=== PATIENT | female | born 1935 | race Caucasian/White ===

== ENCOUNTER 2024-01-29 13:17 | Outpatient (CLI) | payer MEDICARE, SELFPAY ==
--- NOTE | 2024-01-29 13:45 | CA_ITS ---
APPROVED REPORT EXAM: Comprehensive 2D, Doppler, and color-flow Echocardiogram Tank Truck Milk Receiver: Sheila Levy RVT Ht: 5 ft 4 in Wt: 137lbs BSA: 1.67 BP: 149/69 mmHg Indications: SOA,TACHYCARDIA,HLD,EX SMOKER 2D Dimensions IVSd 1.25 cm F: 0.6-1.0 LVEF (Visual) 61.30 % PWd 0.82 cm F: 0.6 - 1.0 LA Volume 33.00 mL LVDd 3.23 cm F: 3.9 - 5.3 LA Volume Index 19.76 mL/m2 (M/F) 16-34 LVDs 2.20 cm F: 2.2 - 3.5 M-Mode Dimensions LA Diam 2.98 cm (1.9-4.0) TAPSE 1.88 (<1.7) LV Diastology E Decel Time 143 (160-240 msec) E/A Ratio 0.5 Aortic Valve LIBBY Index 1.64 cm2/m2 AoV Peak Meet. 125.0 (50-130 cm/s) AI PHT 488.00 ms AO Peak GR. 6.30 mmHg AO Mean GR. 3.50 (<5 mmHg) AO VTI 20.9 (18-25 cm) LIBBY (VTI) 2.81 (2.5-4.5 cm2) Mitral Valve MV E Max Meet. 51.0 (40-130 cm/s) MV A Velocity 109.0 (40-130 cm/s) E/A Ratio 0.47 MV PHT 42.0 ms Pulmonary Valve PV Peak Velocity 55.0 (50-150 cm/s) Tricuspid Valve TR P. Velocity 272.00 cm/s RAP Estimate 10.00 mmHg RVSP 39.70 mmHg Left Ventricle The left ventricle is normal size. The left ventricular systolic function is normal. The left ventricular ejection fraction is within the normal range. There is increased LV wall thickness. There is normal LV segmental wall motion. Transmitral Doppler flow pattern suggests impaired LV relaxation. LVEF is 55%. Right Ventricle Right ventricle is mildly dilated. The right ventricular systolic function is normal. Atria The left atrium size is normal. Right atrium is mildly dilated. There is no Doppler evidence of interatrial shunt. Aortic Valve The aortic valve is mildly thickened. There is no aortic valvular stenosis. Mild aortic regurgitation. Mitral Valve The mitral valve leaflets are mildly thickened. No evidence of mitral valve stenosis. Trace mitral regurgitation. Tricuspid Valve The tricuspid valve leaflets are thin and pliable. Mild tricuspid regurgitation. RVSP is 25-30 mmHg. Pulmonic Valve The pulmonary valve is normal in structure. Trace pulmonic regurgitation. Great Vessels The aortic root is normal in size. The ascending aorta is not well-visualized. IVC is normal in size and collapses >50% with inspiration. Pericardium There is no pericardial effusion. Conclusion Normal biventricular systolic function. Mild RV dilation. Mild RA dilation. Mild AI, mild TR. Electronically signed by : Unique Krishnamurthy MD 02/04/2024 11:42:18
== END 2024-01-29 23:59 | disposition home or self-care (01) ==
LOC: RT 13:19
PROVIDERS: PCP Family Medicine; Visit Provider Physician Assistant
DX: I51.7 Cardiomegaly (principal); R06.02 Shortness of breath; E78.2 Mixed hyperlipidemia
CPT/HCPCS: 93306

== ENCOUNTER 2025-01-21 12:26 | Outpatient (CLI) | payer MEDICARE, SELFPAY ==
--- OUTSIDE RECORDS SUMMARY | 2023-07-09 11:31 | XMS_ITS | Continuity of Care Document ---
Author Organization [facility] Address [address] [place] [address] Phone Care Team Providers Care Solar Energy Engineer Name Role Phone Obed Crespo MD Unavailable Unavailable Allergies, Adverse Reactions, Alerts Substance Reaction Status Criticality No Known Allergies Active No Inform ation Medications Medication Instructions Dosage Effective Dates (start - stop) Status Comments Celebrex 200 mg capsule take 1 capsule by oral route 2 times every day as needed 200 MG - Active diclofenac sodium 75 mg tablet,delayed release Take 1 po BID pc - Active rosuvastatin 10 mg tablet take 1 tablet by oral route every day 10 MG - Active Procedures Procedure Date Office/outpatient visit,est, Low 2023 Depomedrol 40mg Drain/inject major joint or bursa X-ray exam of knee, 3 views Office/outpatient visit,est, high Depomedrol 40mg Drain/inject major joint or bursa X Ray Hip W/ Pelvis If Perf 2-3 Views Ja X-ray exam lwr spine, min 4 views Office/outpatient visit,new, mod 2020 Advance Directives Directive Yes / No Effective Date File Name No Information Encounters Encounter Description Practice Location Reason(s) For Visit Diagnoses Date Provider Providers Copied on Encounter [facility], [address], [place], [place], [id number], [place] tel:[phone] [facility] 400 No Information 4 Zak Clay. [address], [place], [place], [id number] , [place]. tel:[phone] Referring Provider: Obed Segura, [address], [place], [address] . tel:[phone] Office/outpa tient visit,[facility], [address], [place], [place], [id number], [place] tel:[phone] [facility] 400 knee (chief complaint) Primary osteoarthritis of right knee 4 Zak Clay. [address], [address], [place], [place], [id number] , [place]. tel:[phone] Referring Provider: Obed Segura, [address], [place], [address] . tel:[phone] Office/outpa tient visit,[facility], [address], [place], [place], [id number], [place] tel:[phone] [facility] - Walk-in right knee pain (chief complaint) Acute pain of right kneePrimary osteoarthritis of right knee 3 Meliton Leija. [address], [address], [place], [place], [id number] , [place]. tel:[phone] Referring Provider: Heladio Harden, [address], [place], [address] . tel:[phone] Office/outpa tient visit,[facility], [address], [place], [place], [id number], [place] tel:[phone] [facility] [address] lumbar spine (chief complaint) Lumbar painDisc degeneration, lumbarTrochanter ic bursitis, left hip 1 Rebeca Allen. [address], [address], [place], [place], [address] , [place]. tel:[phone] Referring Provider: Alejandro Lubin, [address], [place], [address] . tel:[phone] [facility], [address], [place], [place], [id number], [place] tel:[phone] [place] [address] No Information 1 Rebeca Allen. [address], [address], [place], [place], [address] , [place]. tel: [phone] Family History Family Member Type Diagnosis Age At Onset Mother Problem (finding) Father Problem (finding) Payers Payer name Insurance type Covered alliance party ID Authoriza tion(s) MEDICARE [id number] AARP SUPPLEMENT CI [id number] Social History Type Description Quantity Date Captured Comments Sex Female Smoking Status No Information Chief Complaint And Reason For Visit No Information Reason For Referral Reason For Referral No Information Plan Of Treatment Date Type Action Status Referral Ordered: X-ray exam of knee, 3 views RT ordered Referral Ordered: X Ray Hip W/ Pelvis If Perf 2-3 Views LT ordered Referral Ordered: X-ray exam of lower spine, complete ordered History Of Present Illness Encounter Date Complaint History Of Prese nt Illness knee Ryanne Weir is a 88 year old female. She presents for right knee pain that began the beginning of 04/2023. Patient states she was leaning over a chair when she came back up she turned twisting her knee. Patient saw Heladio GUZMAN on 04/21/23 where he proceeded with a CSI for OA and reports 100% improvement. She denies any pain today. The problem is improving. The pain is described as aching. The symptoms are aggravated by ascending stairs. right knee pain Ms Weir is a 87 y ear old female who complains of right knee pain. She presents with pain on the right side. Patient presents to the office for right knee pain that began a week ago. Patient states she was folding a chair when she came back up she turned twisting her knee. She states that the symptoms have been acute non-traumatic and began 1 week ago. Ryanne states that the symptoms began as the result of twisting. The symptoms occur intermittently. Currently the patient states that the symptoms are moderate. The pain is described as aching. The symptoms occur with activity. She also reports additional pain in the medial aspect on the right side. She rates her current pain as 6/10. The pain does not radiate. The symptoms are aggravated by standing and walking. Ryanne states that the symptoms are relieved by rest and OTC medicines. In addition to right knee pain the patient is also experiencing decreased mobility. lumbar spine Ryanne Weir is a 85 year old female. She presents with pain. Patient states for 5 nights she has been in a recliner. Patient states went from her lower back into her left hip. She states that the symptoms have been chronic non-traumatic. The symptoms occur constantly. The problem is fluctuating. The patient is experiencing pain in the following location: lower back. She rates her current pain as 4/10. The pain radiates from the lower back then to the lower extremities. She denies having any associated symptoms. Functional Status Date Functional Assessmen t No Information Instructions Date Instruction Additional Infor ruth Have discussed hermelindo gilbert a home exercise program which the patient has been instructed on. At this point the patient will schedule a follow-up appointment on an as-needed basis if symptoms were to recur or persist. Related to Primary osteoarthritis of right knee 87 year old female w ho complains of right knee pain that began a week ago. Patient states she was leaning over a chair when she came back up she turned twisting her knee. Since that time she has been experiencing pain and swelling in the right knee. She is having extreme difficulty with walking. Examination today of the right knee demonstrates a marked amount of patellofemoral crepitance. There is no instability appreciated. Amisha's is negative. Patient has pain referenced to the posterior medial joint line. X-rays taken in the office today demonstrate degenerative changes bilaterally to include patellofemoral arthrosis and degeneration of the medial compartment bilaterally. Recommend after Betadine preparation to inject the right knee with 2 cc of Marcaine and 2 cc of Depo-Medrol with good postinjection response. Patient ambulated with much less pain. Recommend Celebrex 200 mg p.o. daily #14. Patient will follow-up with Dr. Crespo in 4 to 6 weeks. Related to Primary osteoarthritis of right knee She has had recurren t low back pain in the past and has had treatment including epidural steroid injections. Findings today are those of primary trochanteric bursitis left with secondary symptoms of low back discomfort related to disc degeneration without a definite radicular component. X-rays demonstrate degenerative change of the lumbar spine and mild changes of the hip. We discussed treatment for diagnostic and therapeutic reasons. Left hip will be injected We have discussed treatment options at length including injections, medications and surgical intervention. The patient has substantial pain and inflammation, I believe it is medically necessary to inject the hip directly with corticosteroids and anesthetics in order to expedite the recovery. The joint is so inflamed and aggravated that I do not believe oral medications, topical medication or external treatment with be effective alone. Using a sterile technique, I have injected the patient trochanteric bursa with 2cc Bupivacaine mixed with 4cc Depo Medrol 40 mg. Using a sterile technique. She is placed on prednisone taper followed by use of diclofenac for 2 to 4 weeks. She is advised on ice rest and home exercise program including core strengthening and IT band stretching. She presently takes a statin drug and has no gastric symptomatology. We discussed possible side effects of medication. Related to Trochanteric bursitis, left hip Assessments Type Assessment Date No Information Patient Care Teams Name Effective Dates (start - stop) Status Members No Information
--- OUTSIDE RECORDS SUMMARY | 2025-01-21 12:29 | XMS_ITS | Encounter Summary ---
Author Organization [facility] ([place], [place], [place], [place]) Address [address] [place] [address] Care Team Providers Care Airport Clerk Name Role Phone America Heredia MD Primary Care Provider [phone] Encounter Details Date Type Department Care Team (Late st Contact Info) Description 10/02/2021 Transcribed Document [facility] [address] [place] [address] ProviderPaulina MD [address] [place] [address] Social History Tobacco Use Types Packs/Day Years Used Date Smoking Tobacco: Never Assessed Family and Community Support Answer Alejo e Recorded Help with Day to Day Activities Not on file 06/27/2023 Feeling Lonely or Isolated Not on file 06/27 Educational Attainment Answer Date Burak rded Speak language other than [place] at home Not on file 06/27/2023 Want help with school or training Not on file 06/27/2023 Substance Use Answer Date Recorded Used prescription meds for non-medical reasons N ot on file 06/27/2023 Used illegal drugs past 12 months Not on file 06/27/2023 Comments Unknown Sex and Gender Information Value Date Recorded Sex Assigned at Not on file Legal Sex Female 3:45 PM CDT Gender Identity Not on file Sexual Orientation Not on file documented as of this encounter Miscellaneous Notes * Cerner Conversion Note - Historical ProviderMD - 10/02/2021 12:39 PM CDT Patient: RYANNE MONTANA Age: 86 years Sex: Female : 1935 Associated Diagnoses: Chest pain Author: ADA LA MD-EMR Basic Information Additional information: Chief Complaint from Nursing Triage Note : Chief Complaint 10/02/2021 12:12 EDT Chief Complaint 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 substernal squeezing on left side. 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 . History of Present Illness Patient is an 86-year-old female with a history of COPD presenting with chest pain and shortness of breath. Patient was at the infusion center and she states she started to feel a squeezing sensation on the left side of her chest. She states I think everybody just overreacted . I think wearing the mask made me feel poorly as when EMS put oxygen on me I felt fine . Patient denies any chest pain at this time. Patient states she does not want to be evaluated as her sick and she would like to leave immediately. Allergies and nursing notes reviewed. Review of Systems Constitutional symptoms: No fever, no chills. Skin symptoms: No jaundice, ENMT symptoms: No sore throat, Respiratory symptoms: No shortness of breath, Cardiovascular symptoms: Chest pain. Gastrointestinal symptoms: No abdominal pain, no nausea, no vomiting. Musculoskeletal symptoms: No back pain, Neurologic symptoms: No headache, Endocrine symptoms: No polyuria, Health Status Allergies: Allergic Reactions (Selected) No Known Medication Allergies. Past Medical/ Family/ Social History Surgical history: No active procedure history items have been selected or recorded.. Family history: No family history items have been selected or recorded.. Social history: Social & Psychosocial Habits No Data Available . Problem list: No qualifying data available . Physical Examination Vital Signs Vital Signs/Vital Measures 10/02/2021 12:12 EDT Blood Pressure Location Arm, left upper Blood Pressure Source Non-Invasive BP Device Systolic Blood Pressure 123 mmHg Diastolic Blood Pressure 66 mmHg Temperature Source Oral Temperature Mode Fahrenheit Temperature, Fahrenheit 98.8 Deg F Clinical Temperature, C 37.1 Deg C Peripheral Pulse Rate 88 bpm Respiratory Rate 18 Breaths/Min Oxygen Saturation 98 % Oxygen Therapy Mode Room air . Measurements 10/02/2021 12:12 EDT Height Source Stated Height Entry Format [place] Height/Length, [place] (ft) 5 ft Height/Length [place] 5 Inch CLINICALHEIGHT 165.1 cm Type of Weight Measurement. Dixie Weight, est lb 145 lb Estimated Clinical Dosing Weight 65.91 kg [place] Body Weight 56.59 kg Weight Source, ED Estimated . Oxygen Saturation 10/02/2021 12:12 EDT Oxygen Saturation 98 % . General: Alert, no acute distress. Skin: Warm, no rash, normal for ethnicity. Head: Normocephalic. Neck: Supple. Eye: Extraocular movements are intact, normal conjunctiva, Sclera. Ears, nose, mouth and throat: Oral mucosa moist. Cardiovascular: Regular rate and rhythm, No murmur, Normal peripheral perfusion, No edema. Respiratory: Respirations are non-labored, breath sounds are equal, Breath sounds: Bilateral, diminished. Chest wall: No tenderness. Back: Nontender. Gastrointestinal: Soft, Nontender, Non distended, Normal bowel sounds. Neurological: Alert and oriented to person, place, time, and situation, No focal neurological deficit observed. Lymphatics: No lymphadenopathy. Psychiatric: Cooperative. Medical Decision Making Differential Diagnosis: Unstable angina, angina, anxiety, pulmonary embolism, atypical chest pain, aortic dissection, pneumonia, gastroesophageal reflux disease, costochondritis. Documents reviewed: Emergency department nurses' notes. Impression and Plan Diagnosis Chest pain - Reason For Visit, Emergency medicine, Medical EKG is normal sinus. I told the patient I do not recommend her leaving as we need to evaluate her for her chest pain and symptoms. Patient understands the risk of morbidity mortality and would like to leave AGAINST MEDICAL ADVICE. documented in this encounter Plan of Treatment Upcoming Encounters Date Type Department Care Team (Late st Contact Info) Description 03/07/2025 11:45 AM EDT Appointment [address] [place] [address] documented as of this encounter Visit Diagnoses Not on filedocumented in this encounter Care Teams Airport Clerk Relationship Specialty Start Date End Date America Heredia MD [address] [id number] PCP - General Family Medicine 02/27/23 documented as of this encounter
--- OUTSIDE RECORDS SUMMARY | 2025-01-21 12:29 | XMS_ITS | Encounter Summary ---
Author Organization [facility] ([place], [place], [place], [place]) Address [address] [place] [address] Care Team Providers Care Industrial Gas Fitter Helper Name Role Phone America Heredia MD Primary Care Provider [phone] Reason for Referral * Mammography (Routine) - Authorized Specialty Diagnoses / Procedures Referred By Contac t Referred To Contact Radiology Diagnoses Visit for screening mammogram Procedures MM digital mammo screen with bryan bilateral America Heredia MD [address] [address] Phone: tel: fax: [facility] [address] [facility] [address] [place] [address] Phone: tel: fax: Referral ID Status Reason Start Date Expiration Date V isits Requested Visits Authorized [id number] Authorized 03/07/2025 03/07/2026 1 1 Encounter Details Date Type Department Care Team (Late st Contact Info) Description 03/02/2024 Outside Orders [facility] [address] [facility] [address] [place] [address] America Heredia MD [address] [address] Visit for screening mammogram (Primary Dx) Social History Tobacco Use Types Packs/Day Years Used Date Smoking Tobacco: Never Assessed Family and Community Support Answer Alejo e Recorded Help with Day to Day Activities Not on file 06/27/2023 Feeling Lonely or Isolated Not on file 06/27 Educational Attainment Answer Date Burak rded Speak language other than Romanian at home Not on file 06/27/2023 Want [...] on file documented as of this encounter Plan of Treatment Upcoming Encounters Date Type Department Care Team (Late st Contact Info) Description 03/07/2025 11:45 AM EDT Appointment [address] [address] Scheduled Orders Name Type Priority Associated Diagnoses Orde r Schedule MM digital mammo screen with bryan bilateral Imaging Routine Visit for screening mammogram Expected: 03/07/2025, Expires: 03/07/2026 documented as of this encounter Visit Diagnoses Diagnosis Visit for screening mammogram- Primary documented in this encounter Care Teams Industrial Gas Fitter Helper Relationship Specialty Start Date End Date America Heredia MD [address] [place] [phone] PCP - General Family Medicine 02/27/23 documented as of this encounter
--- OUTSIDE RECORDS SUMMARY | 2025-01-21 12:29 | XMS_ITS | Patient Health Record ---
Author Organization [facility] Address [address] [facility] [address] [place] [address] Care Team Providers Care Distribution Tech Name Role Phone Michelle Addison Unavailable [phone] Allergies No Known Allergies Reason For Referral No Information Medications Medication SIG (Take, Route, Frequency, Duration) Notes Start Date End Date Status traMADol HCl 50 MG Tablet TAKE 1 TABLET BY MOUTH EVERY 6 HOURS NEEDED FOR PAIN Oral; Duration: 2 Active Dulera 100-5 MCG/ACT Aerosol Inhalation; Duration: 90 Act baldomero Montelukast Sodium 10 MG Tablet Oral; Duration: 90 Active Rosuvastatin Calcium 10 MG Tablet Oral; Duration: 90 Active Social History Social History Drugs/Alcohol: Social Info Question Answer Notes Drugs Have you used drugs other than those for medical reasons in the past 12 months? No Alcohol Screen Did you have a drink containing alcohol in the past year? No Points 0 Interpretation Negative Problems Problem Type SNOMED Code ICD Code Onset Dates Problem Status W/U Status Risk Notes Problem Catheterization of urinary bladder (470644716) Guido catheter in place (Z96.0) 11/09/19 20 Active confirmed Vaginal pessary in situ Problem Midline cystocele (N81.11) Active confirmed Plan Of Treatment No Information Insurance Providers Payer Name Payer Address Payer Phone Subscriber Number Group Number Insured Name Patient Relationship to Insured Coverage Start Date Coverage End Date [place] [address] [place] [address] [id number] Ryanne Weir Self - patient is the insured 2 AARP [address] [place], [place] [phone] [id number] Ryanne Weir Self - patient is the insured 01/01/202 2 Medical (General) History Medical History History ICD Code COOPER III 1983 elevated cholesterol cystocele Surgical History Surgery Date(Month/Year) hyst BS&O for COOPER III Cervical conization D&C left breast biopsy Hospitalization History Reason Date(Month/Year) childbirth [facility]
--- OUTSIDE RECORDS SUMMARY | 2025-01-21 12:29 | XMS_ITS | Encounter Summary ---
Author Organization [employer] ([place], [place], [place], [place]) Address [address] [place] [address] Care Team Providers Care Dye Lab Technician Name Role Phone America Heredia MD Primary Care Provider [phone] Encounter Details Date Type Department Care Team (Late st Contact Info) Description 10/02/2021 Transcribed Document [facility] [place] Family Medicine [address] [place] [address] ProviderPaulina MD [address] [place] [address] Social History Tobacco Use Types Packs/Day Years Used Date Smoking Tobacco: Never Assessed Family and Community Support Answer Alejo e Recorded Help with Day to Day Activities Not on file 06/27/2023 Feeling Lonely or Isolated Not on file 06/27 Educational Attainment Answer Date Burak rded Speak language other than Chinese at home Not on file 06/27/2023 Want [...] Miscellaneous Notes * Cerner Conversion Note - Paulina ProviderMD - 10/02/2021 11:52 AM CDT ED Triage Entered On: 10/02/2021 12:21 EDT Performed On: 10/02/2021 12:12 EDT by Carrie Washington, RN-PATIENT CARE BEDSIDE NON-EXEMPT ED Triage Across the Room Chief Complaint : 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 substernal squeezing on left side. 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 nsr on ekg. Triage Date/Time : 10/02/2021 12:12 EDT Carrie Washington RN-PATIENT CARE [facility] NON-EXEMPT - 10/02/2021 12:12 EDT DCP GENERIC CODE Tracking Acuity : 3 - Urgent Tracking Group : [facility] ED [facility] Carrie Washington RN-PATIENT CARE BEDSIDE NON-EXEMPT - 10/02/2021 12:12 EDT Mode of Arrival : Stretcher Transported to ED by : Ambulance/ALS EMS Service : [facility] To Room Via : Stretcher Accompanied By : Unaccompanied ED Vital Signs : Document Height & Weight : Document ED Allergies : Document ED Reason for Visit : Document ED Triage Treatments : Document Tetanus Immunization : Greater than 5 years Student Development Coordinator Needed : No Carrie Washington RN-PATIENT CARE [facility] NON-EXEMPT - 10/02/2021 12:12 EDT Infectious Disease History Does patient have symptoms of COVID-19? : No Tested for COVID19 in the past 14 days : No, Patient stated Does the Patient state known exposure to a COVID-19 positive case in the last 14 days? : No Patient Vaccinated for COVID-19 : Fully vaccinated Carrie Washington RN-PATIENT CARE [facility] NON-EXEMPT - 10/02/2021 12:12 EDT Infectious Disease Risk Screening Grid Cough < 2 wks of unknown origin : NO Cough > 2 weeks : NO Blood in Sputum : NO Fever or self-reported Fever : NO Rash of unknown origin : NO Headache : NO Stiff neck : NO Night Sweats : NO Unexplained Weight Loss : NO Diarrhea (3 episode per day) : NO Carrie Washington RN-PATIENT CARE [facility] NON-EXEMPT - 10/02/2021 12:12 EDT Physical contact outside [place] in the last 30 days : No Hospitalized in Foreign Country : No Infectious Disease History : None INF Disease TB Screening Calc : 0 INF Disease Recent Travel Calc : 0 Carrie Washington RN-PATIENT CARE [facility] NON-EXEMPT - 10/02/2021 12:12 EDT Vital Signs ED Temperature Source : Oral Temperature Mode : Fahrenheit Temperature, Fahrenheit : 98.8 Deg F ED Pain : No Clinical Temperature, C : 37.1 Deg C Oxygen Therapy Mode : Room air Peripheral Pulse Rate : 88 bpm Respiratory Rate : 18 Breaths/Min Blood Pressure Location : Arm, left upper Blood Pressure Source : Non-Invasive BP Device Systolic Blood Pressure : 123 mmHg Diastolic Blood Pressure : 66 mmHg Oxygen Saturation : 98 % Carrie Washington RN-PATIENT CARE BEDSIDE NON-EXEMPT - 10/02/2021 12:12 EDT Allergy (As Of: 10/02/2021 12:21:46 EDT) Allergies (Active) No Known Medication Allergies Estimated Onset Date: Unspecified ; Created By: Carrie Washington RN-PATIENT CARE BEDSIDE NON-EXEMPT; Reaction Status: Active ; Category: Drug ; Substance: No Known Medication Allergies ; Type: Allergy ; Updated By: Carrie Washington RN-PATIENT CARE BEDSIDE NON-EXEMPT; Reviewed Date: 10/02/2021 12:19 EDT Diagnosis Control ED (As Of: 10/02/2021 12:21:46 EDT) Diagnoses(Active) Chest pain Date: 10/02/2021 ; Diagnosis Type: Reason For Visit ; Confirmation: Complaint of ; Clinical Dx: Chest pain ; Classification: Medical ; Clinical Service: Non-Specified ; Code: PNED ; Probability: 0 ; Diagnosis Code: [id number] ED Height and Weight Height Source : Stated Height Entry Format : [place] Height, Feet : 5 ft(Converted to: 152 cm, 60 Inch) Height, Inches : 5 Inch(Converted to: 0 ft 5 Inch, 12.70 cm) Clinical Height : 165.1 cm Weight Source, ED : Estimated [place] Body Weight (IBW) : 56.59 kg Carrie Washington RN-PATIENT CARE BEDSIDE NON-EXEMPT - 10/02/2021 12:12 EDT Estimated Weight Type of Weight Measurement Est : [place] Weight, est lb : 145 lb(Converted to: 66 kg) Estimated Clinical Dosing Weight : 65.91 kg Carrie Washington RN-PATIENT CARE BEDSIDE NON-EXEMPT - 10/02/2021 12:12 EDT Triage Initial Exam and Interventions, ED Level of Consciousness : Alert Affect/Behavior : Appropriate, Calm, Cooperative Orientation : Oriented x 4 Skin Temperature : Warm Skin Description : Normal for ethnicity Carrie Washington RN-PATIENT CARE BEDSIDE NON-EXEMPT - 10/02/2021 12:12 EDT ED Influenza/Pneumoccocal Vaccine Influenza Immunization, Current Season : Yes Influenza Immunization Date : 03/09/2021 EDT Pneumonia Immunization Received : No Pneumonia Immunization Date : 10/02/2021 EDT Previous Vaccines from Immunization Schedule : No qualifying data available. Carrie Washington RN-PATIENT CARE BEDSIDE NON-EXEMPT - 10/02/2021 12:12 EDT Electronically signed by [facility] Conversion Justice Professor Cerner at 09/22/2022 9:27 AM CDT documented in this encounter Plan of Treatment Upcoming Encounters Date Type Department Care Team (Late st Contact Info) Description 03/07/2025 11:45 AM EDT Appointment [address] [place] [address] documented as of this encounter Visit Diagnoses Not on filedocumented in this encounter Care Teams Dye Lab Technician Relationship Specialty Start Date End Date America Heredia MD [address] [place] [phone] PCP - General Family Medicine 02/27/23 documented as of this encounter
--- OUTSIDE RECORDS SUMMARY | 2025-01-21 12:29 | XMS_ITS | Encounter Summary ---
Author Organization [email or web address] ([place], [place], [place], [place]) Address [address] [place] [address] Care Team Providers Care Motorcycle Mechanic Apprentice Name Role Phone America Heredia MD Primary Care Provider [phone] Encounter Details Date Type Department Care Team (Late st Contact Info) Description 10/02/2021 Transcribed Document [facility] [place] [address] [place] [address] ProviderPaulina MD [address] [place] [address] Social History Tobacco Use Types Packs/Day Years Used Date Smoking Tobacco: Never Assessed Family and Community Support Answer Alejo e Recorded Help with Day to Day Activities Not on file 06/27/2023 Feeling Lonely or Isolated Not on file 06/27 Educational Attainment Answer Date Burak rded Speak language other than Korean at home Not on file 06/27/2023 Want [...] Paulina ProviderMD - 10/02/2021 11:52 AM CDT Broset Violence Assessment Entered On: 10/02/2021 12:23 EDT Performed On: 10/02/2021 12:21 EDT by Carrie Washington, RN-PATIENT CARE BEDSIDE NON-EXEMPT Broset Violence Assessment Broset Violence Checklist of Symptoms : None Broset Violence Symptoms Subtotal : 0 Broset Violence Symptoms Indicator : Low risk (0) Carrie Washington RN-PATIENT CARE BEDSIDE NON-EXEMPT - 10/02/2021 12:21 EDT documented in this encounter Plan of Treatment Upcoming Encounters Date Type Department Care Team (Late st Contact Info) Description 03/07/2025 11:45 AM EDT Appointment [address] [place] [phone] documented as of this encounter Visit Diagnoses Not on filedocumented in this encounter Care Teams Motorcycle Mechanic Apprentice Relationship Specialty Start Date End Date America Heredia MD [address] [place] [phone] PCP - General Family Medicine 02/27/23 documented as of this encounter
--- OUTSIDE RECORDS SUMMARY | 2025-01-21 12:29 | XMS_ITS | Clinical Summary ---
Author Organization [employer] ([place], [place], [place], [place]) Address [address] [place] [address] Care Team Providers Care Exec. Creative Director Name Role Phone America Heredia MD Primary Care Provider [phone] Family History Medical History Relation Name Comments Breast cancer Mother age 85 Breast cancer Other Aunt Relation Name Status Comments Mother age 85 Other Aunt Social History Tobacco Use Types Packs/Day Years Used Date Smoking Tobacco: Never Assessed Family and Community Support Answer Alejo e Recorded Help with Day to Day Activities Not on file 06/27/2023 Feeling Lonely or Isolated Not on file 06/27 Educational Attainment Answer Date Burak rded Speak language other than Bulgarian at home Not on file 06/27/2023 Want [...] on file Sexual Orientation Not on file Plan of Treatment Upcoming Encounters Date Type Department Care Team (Late st Contact Info) Description 03/07/2025 11:45 AM EDT Appointment [address] [place] [phone] Health Maintenance Due Date Last Done Comments Depression Screening (12+) 1947 Tobacco Cessation Counseling and Screening (12+) 1947 Medicare Initial AWV [id number] 04/10/2003 Respiratory Syncytial Virus (RSV) Adult or (1 - 1-dose 75+ series) 2012 COVID-19 VACCINE (8 - 4-2 5 season) 2024 03/04/2022, 10/30/2021, 03/07/2021, Additional history exists Falls Risk Screening 06/09/2024 Influenza Vaccine (#1) 2025 3, 03/04/2022, 02/13/2021, Additional history exists DTAP/TDAP/TD VACCINES (2 - T d or Tdap) 03/18/2026 03/18/2016 Pneumococcal 50+ years Completed 7, 03/22/2015, 03/14/2009 Shingles Vaccine (Zoster) Completed 2019, 12/24/2019, 01/18/2008 Insurance MEDICARE [place] [address] [address] Care Teams Exec. Creative Director Relationship Specialty Start Date End Date America Heredia MD [address] [phone] PCP - General Family Medicine 02/27/23
--- OUTSIDE RECORDS SUMMARY | 2025-01-21 12:29 | XMS_ITS | Patient Health Record ---
Author Organization [employer] Address [address] [facility] [address] [place] [address] Care Team Providers Care Button Sewing Machine Operator Name Role Phone ABNER AMAYA Unavailable [phone] Allergies No Known Allergies Reason For Referral No Information Medications Medication SIG (Take, Route, Frequency, Duration) Notes Start Date End Date Status Probiotic Active Stool Softener 100 MG 1 capsule as neede d Orally Once a day Active Vitamin D 50 MCG (2000 UT) 1 tablet Oral ly Once a day Active Dulera 100-5 MCG/ACT 2 puffs Inhalation once a day Active Albuterol Sulfate HFA 108 (90 Base) MCG/ACT 2 puffs as needed Inhalation every 6 hrs as needed Active Montelukast Sodium 10 MG 1 tablet Orally Once a day Active Crestor 10 MG 1 tablet Orally Once a day Active Biotin 5000 Active Antihistamine Active Multi-Vitamin Active Glucosamine Active Social History Tobacco Use: Social History Observation Description Date Details (start date - stop date) Former Smoker NA - NA Tobacco Use/Smoking Question Answer Notes Are you a former smoker How long has it been since you last smoked? 5-10 years Alcohol Screen (Audit-C) Question Answer Notes Did you have a drink containing alcohol in the p ast year? No Points 0 Interpretation Negative Problems Problem Type SNOMED Code ICD Code Onset Dates Problem Status W/U Status Risk Notes Problem COPD - Chronic obstructive pulmonary disease (80018380) Chronic obstructive pulmonary disease, unspecified COPD type (J44.9) Active confirmed No hospitaliz ations. She is on a steroid and LBA. 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) Active confirmed 04/28/24 this gets worse when she plays golf Problem Allergic rhinitis (54399805) Allergic rhinitis, unspecified seasonality, unspecified trigger (J30.9) Active confirmed Problem Hearing loss (57284154) Bilateral hearing loss, unspecified hearing loss type (H91.93) Active confirmed she has hearing aids Problem 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 (7806104950778427 4) 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) Active confirmed this is not a current issue for her she had steroid shot which has helped Vital Signs Heart Rate 79 /min 04/28/2024 Temperature 97.8 degrees Fahrenheit 04/28/2024 Respiratory Rate 12 /min 04/28/2024 Height-cm 162.56 cm 04/28/2024 Oximetry 97 % 04/28/2024 Blood pressure diastolic 79 mm Hg 04/28/2024 Weight-kg 59.87 kg 04/28/2024 Height 64 in 04/28/2024 Blood pressure systolic 132 mm Hg 04/28/2024 Weight 132 lbs 04/28/2024 BMI 22.66 kg/m2 04/28/2024 Encounters Encounter Location Date Provider Diagnosis Abner GUZMAN [address] [phone] 04/28/2024 ABNER AMAYA Hyperlipidemia, unspecified hyperlipidemia type E78.5 ; Chronic obstructive pulmonary disease, unspecified COPD type J44.9 ; Allergic rhinitis, unspecified seasonality, unspecified trigger J30.9 ; Polyarthralgia M25.50 ; 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 M23.322 ; Primary osteoarthritis of left knee M17.12 ; Former smoker Z87.891 ; Bilateral hearing loss, unspecified hearing loss type H91.93 and BMI 23.0-23.9, adult Z68.23 Assessments Encounter Date Diagnosis (ICD Code) Assessment Notes Treatment Notes Treatment Clinical Notes Section Notes 04/28/2024 Chronic obstructive pulmonary disease, unspecified COPD type (ICD-10 - J44.9) No hospitalization s. She is on a steroid and LBA. 04/28/24 she states she just got finished treating bronchitis/pneu monia she is much better 04/28/2024 Hyperlipidemia, unspecified hyperlipidemia type (ICD-10 - E78.5) 04/23/2023::::: :::::: Completed labs with PCP giana Alvarez, will try and bring records 04/28/24 no labs provided she is on a statin 04/28/2024 Allergic rhinitis, unspecified seasonality, unspecified trigger (ICD-10 - J30.9) 04/28/2024 Polyarthralgia (ICD-10 - M25.50) 04/23/2023::::: :::::: RT knee is bothering her now 04/28/2024 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 (ICD-10 - M23.322) this is not a current issue for her she had steroid shot which has helped 04/28/2024 Primary osteoarthritis of left knee (ICD-10 - M17.12) 04/28/24 this gets worse when she plays golf 04/28/2024 Former smoker (ICD-10 - Z87.891) 04/28/2024 Bilateral hearing loss, unspecified hearing loss type (ICD-10 - H91.93) she has hearing aids 04/28/2024 BMI 23.0-23.9, adult (ICD-10 - Z68.23) Plan Of Treatment Next Appt Details Provider Name:ABNER COUGHLINBERG, 04/25/2025 04:15:00 PM, [address] [facility], [address], [place], [address], Insurance Providers Payer Name Payer Address Payer Phone Subscriber Number Group Number Insured Name Patient Relationship to Insured Coverage Start Date Coverage End Date Medicare [place] [employer] [address] [place] [phone] [id number] Ryanne Weir Self - patient is the insured [facility] Supplemental [address] [place] [phone] [id number] Ryanne Weir Self - patient is the insured Medical (General) History Medical History History ICD Code Glasses COPD (chronic obstructive pulmonary dise ase) J44.9 Frequent urination Surgical History Surgery Date(Month/Year) hysterectomy
--- OUTSIDE RECORDS SUMMARY | 2025-01-21 12:29 | XMS_ITS | Encounter Summary ---
Author Organization [employer] ([place], [place], [place], [place]) Address [address] [place] [address] Care Team Providers Care Tutor Coordinator Name Role Phone America Heredia MD Primary Care Provider [phone] Encounter Details Date Type Department Care Team (Late st Contact Info) Description 10/02/2021 Transcribed Document [facility] [place] Family Medicine [address] [place] [address] ProviderPaulina MD [address] [place] [address] Social History Tobacco Use Types Packs/Day Years Used Date Smoking Tobacco: Never Assessed Family and Community Support Answer Alejo e Recorded Help with Day to Day Activities Not on file 06/27/2023 Feeling Lonely or Isolated Not on file 06/27 Educational Attainment Answer Date Burak rded Speak language other than Occitan at home Not on file 06/27/2023 Want [...] Paulina ProviderMD - 10/02/2021 11:52 AM CDT [place] Suicide Severity Rating Scale (C-SSRS) Entered On: 10/02/2021 12:23 EDT Performed On: 10/02/2021 12:21 EDT by Carrie Washington RN-PATIENT CARE BEDSIDE NON-EXEMPT [place] Suicide Severity Rating Scale (C-SSRS) CSSRS Past Month Wish to be : No CSSRS Past Month Suicidal Thoughts : No CSSRS Lifetime Suicide Behavior : No Suicide Severity Rating Score : 0 Suicide Severity Rating : No Additional Care Required at this time Carrie Washington RN-PATIENT CARE BEDSIDE NON-EXEMPT - 10/02/2021 12:21 EDT documented in this encounter Plan of Treatment Upcoming Encounters Date Type Department Care Team (Late st Contact Info) Description 03/07/2025 11:45 AM EDT Appointment [address] [phone] documented as of this encounter Visit Diagnoses Not on filedocumented in this encounter Care Teams Tutor Coordinator Relationship Specialty Start Date End Date America Heredia MD [address] [place] [phone] PCP - General Family Medicine 02/27/23 documented as of this encounter
--- OUTSIDE RECORDS SUMMARY | 2025-01-21 12:29 | XMS_ITS | Encounter Summary ---
Author Organization [email or web address] ([place], [place], [place], [place]) Address [address] [place] [address] Care Team Providers Care Process Steward Name Role Phone America Heredia MD Primary Care Provider [phone] Encounter Details Date Type Department Care Team (Late st Contact Info) Description 10/02/2021 Transcribed Document [facility] [place] [address] [place] [address] ProviderPaulina MD [address] [place] [address] Social History Tobacco Use Types Packs/Day Years Used Date Smoking Tobacco: Never Assessed Family and Community Support Answer Alejo e Recorded Help with Day to Day Activities Not on file 06/27/2023 Feeling Lonely or Isolated Not on file 06/27 Educational Attainment Answer Date Burak rded Speak language other than Lao at home Not on file 06/27/2023 Want [...] ProviderMD - 10/02/2021 11:52 AM CDT ED Assessment Entered On: 10/02/2021 12:23 EDT Performed On: 10/02/2021 12:21 EDT by Carrie Washington, RN-PATIENT CARE BEDSIDE NON-EXEMPT ED Quick Look Assessment Level of Consciousness : Alert, Awake Affect/Behavior : Appropriate Skin Description : Normal for ethnicity Carrie Washington RN-PATIENT CARE BEDSIDE NON-EXEMPT - 10/02/2021 12:21 EDT ED General-Functional Assess Information Obtained From : Patient Communication Barrier : None Primary Language : Lao Any Spiritual/Cultural Needs or Requests : No Currently in Unsafe Situation : No Carrie Washington RN-PATIENT CARE BEDSIDE NON-EXEMPT - 10/02/2021 12:21 EDT ED Psychosocial Assessment Affect/Behavior : Appropriate, Calm, Cooperative Carrie Washington RN-PATIENT CARE BEDSIDE NON-EXEMPT - 10/02/2021 12:21 EDT Social Habits Smoking Status : Never (less than 100 in lifetime; none in last 30 days) Smokeless Tobacco Status : Never Desires Tobacco Cessation Calc : 0 Carrie Washington RN-PATIENT CARE BEDSIDE NON-EXEMPT - 10/02/2021 12:21 EDT Social History (As Of: 10/02/2021 12:23:43 EDT) EENT Assessment EENT Assessment WDL : WDL Carrie Washington RN-PATIENT CARE BEDSIDE NON-EXEMPT - 10/02/2021 12:21 EDT Cardiovascular ASMT, ED Cardiovascular Assessment WDL : WDL with exceptions Cardiovascular Symptoms : Pressure at rest Heart Rhythm : Regular Nail Bed Color : [place] Chest Pain : Yes EKG Completed by : Carrie Washington RN-PATIENT CARE BEDSIDE NON-EXEMPT EKG Time Completed : 10/02/2021 12:22 EDT Carrie Washington RN-PATIENT CARE BEDSIDE NON-EXEMPT - 10/02/2021 12:21 EDT Pulses Grid Brachial Pulse, Left : 2+ normal Brachial Pulse, Right : 2+ normal Carotid Pulse, Left : 2+ normal Carotid Pulse, Right : 2+ normal Dorsalis Pedis Pulse, Left : 2+ normal Dorsalis Pedis Pulse, Right : 2+ normal Femoral Pulse, Left : 2+ normal Femoral Pulse, Right : 2+ normal Popliteal Pulse, Left : 2+ normal Popliteal Pulse, Right : 2+ normal Posterior Tibial Pulse, Left : 2+ normal Posterior Tibial Pulse, Right : 2+ normal Radial Pulse, Left : 2+ normal Radial Pulse, Right : 2+ normal Carrie Washington RN-PATIENT CARE BEDSIDE NON-EXEMPT - 10/02/2021 12:21 EDT Edema Ed Grid Edema, Periorbital Left : None Edema, Periorbital Right : None Edema, Facial : None Edema, Neck : None Edema, Upper Arm, Left : None Edema, Upper Arm, Right : None Edema, Lower Arm, Left : None Edema, Lower Arm, Right : None Edema, Hand, Left : None Edema, Hand, Right : None Edema, Sacral : None Edema, Scrotum, Left : None Edema, Scrotum, Right : None Edema, Labia, Left : None Edema, Labia, Right : None Edema, Upper Leg, Left : None Edema, Upper Leg, Right : None Edema, Knee, Left : None Edema, Knee, Right : None Edema, Lower Leg, Left : None Edema, Lower Leg, Right : None Edema, Ankle, Left : None Edema, Ankle, Right : None Edema, Foot, Left : None Edema, Foot, Right : None Edema, Anasarca : None Carrie Washington RN-PATIENT CARE BEDSIDE NON-EXEMPT - 10/02/2021 12:21 EDT documented in this encounter Plan of Treatment Upcoming Encounters Date Type Department Care Team (Late st Contact Info) Description 03/07/2025 11:45 AM EDT Appointment [address] [phone] documented as of this encounter Visit Diagnoses Not on filedocumented in this encounter Care Teams Process Steward Relationship Specialty Start Date End Date America Heredia MD [address] [place] [phone] PCP - General Family Medicine 02/27/23 documented as of this encounter
--- OUTSIDE RECORDS SUMMARY | 2025-01-21 12:29 | XMS_ITS | Referral Summary ---
Author Organization [employer] ([place], [place], [place], [place]) Address [address] [place] [address] Care Team Providers Care Cytology Manager Name Role Phone America Heredia MD Primary Care Provider [phone] Social History Tobacco Use Types Packs/Day Years Used Date Smoking Tobacco: Never Assessed Family and Community Support Answer Alejo e Recorded Help with Day to Day Activities Not on file 06/27/2023 Feeling Lonely or Isolated Not on file 06/27 Educational Attainment Answer Date Burak rded Speak language other than Sao Tomean at home Not on file 06/27/2023 Want [...] Info) Description 03/07/2025 11:45 AM EDT Appointment [address] [phone] Insurance MEDICARE PART A B [facility] Care Teams Cytology Manager Relationship Specialty Start Date End Date America Heredia MD [address] [place] [phone] PCP - General Family Medicine 02/27/23
[2025-01-21] MEDS: ALBUTEROL 0.083% 2.5 MG/3 ML NEB IH (13:58)
== END 2025-01-21 23:59 | disposition home or self-care (01) ==
LOC: RT 12:27
PROVIDERS: PCP Family Medicine; Visit Provider Internal Medicine Pulmonary Disease
DX: J44.9 Chronic obstructive pulmonary disease, unspecified (principal); R94.2 Abnormal results of pulmonary function studies
CPT/HCPCS: 94060; 94618; 94726; 94729